=== PATIENT | male | born 1980 | race Caucasian/White ===

== ENCOUNTER → 2021-08-17 | Outpatient (CLI) | payer OTHER | END | disposition home or self-care (01) | LOC: RAH 14:04 | PROVIDERS: ATTEND Internal Medicine Critical Care Medicine | DX: E11.65 Type 2 diabetes mellitus with hyperglycemia (principal); E11.51 Type 2 diabetes mellitus with diabetic peripheral angiopathy without gangrene | CPT/HCPCS: 93922 ==